=== PATIENT | female | born 1960 | race Caucasian/White ===

== ENCOUNTER 2017-02-23 11:15 | Emergency (ER) | payer OTHER ==
[~2017-02-23] VITALS: Ht 154.9 cm; Wt 109.0 kg
[~2017-02-23 11:15] MED LIST: AMOXICILLIN500 MG OR; AMOXIL500 MG OR; ANTI-FUNGAL12 TOP; BENTYL10 MG PO; BENZTROPINE0.5 MG PO; BUSPIRONE10 MG PO; CENTRUM ADULTS1 TAB PO; CIPRO500 MG OR; DARVOCET-N 100100 MG OR; FLEXERIL OR; HYDROXYZINE HCL50 MG PO; KEFLEX500 M1 PO; LORTAB 5 OR; MEDDOSEPAK OR; MEDDOSEPAK PO; METRONIDAZOL500 MG PO; MIRTAZAPINE15 M1 PO; MOTRIN400 MG OR; MOTRIN800 MG PO; NAPROSYN500 MG OR; NO HOME MEDS; OLANZAPINE ODT20 MG PO; PRILOSEC40 MG PO; PROAIR HFA IN; PROVENTIL INH17 GM IN; PROVENTIL0.083 % IN; QVAR80 MCG IN; ROBITUSSIN AC10 ML PO; ROCEPHIN 2250 MG/VIA IM; TRAZODONE50 MG PO; TRIMOX500 MG PO; TYLENOL325 MG OR; ULTRAM50 M1 OR; ULTRAM50 M1 PO; VENLAFAXINE H37.5 MG PO; VENTOLIN HFA IN; ZITHROMAX500 MG PO; ZOLPIDEM10 M1 PO
[2017-02-23 11:20] VITALS: BP 137/87
== END 2017-02-23 13:35 | disposition left against medical advice (07) | DRG 951 ==
LOC: ED 11:15
DX: Z91.19 Patient's noncompliance with other medical treatment and regimen (principal)

== ENCOUNTER 2017-10-14 10:50 | Emergency (ER) | payer OTHER ==
[~2017-10-14] VITALS: Ht 154.9 cm; Wt 104.5 kg
[2017-10-14] MEDS ORDERED: CELEXA20 MG PO (11:16)
[2017-10-14] MEDS ORDERED: KLOR-CON M2020 MEQ PO (11:19)
[2017-10-14] MEDS ORDERED: RISPERIDONE1 MG PO (11:25)
[2017-10-14] MEDS ORDERED: GABAPENTIN600 MG PO (11:29)
[2017-10-14] MEDS ORDERED: EFFEXOR XR75 MG PO (11:30)
[2017-10-14] MEDS ORDERED: MULTIVITAMI1 PO (11:31)
[2017-10-14] MEDS ORDERED: LORTAB 5/3255 MG PO (12:18)
[2017-10-14] MEDS ORDERED: EC-NAPROSYN500 MG PO (12:18)
[2017-10-14 12:20] VITALS: BP 130/88
== END 2017-10-14 12:20 | disposition home or self-care (01) | DRG 605 ==
LOC: ED 10:50
DX: S80.02XA Contusion of left knee, initial encounter (principal); Z99.81 Dependence on supplemental oxygen; J44.9 Chronic obstructive pulmonary disease, unspecified; F17.210 Nicotine dependence, cigarettes, uncomplicated; F32.9 Major depressive disorder, single episode, unspecified; G25.81 Restless legs syndrome; F41.9 Anxiety disorder, unspecified; W10.9XXA Fall (on) (from) unspecified stairs and steps, initial encounter; Y93.9 Activity, unspecified; Y92.009 Unspecified place in unspecified non-institutional (private) residence as the place of occurrence of the external cause

== ENCOUNTER 2017-10-29 13:11 | Emergency (ER) | payer OTHER ==
[~2017-10-29] VITALS: Ht 154.9 cm; Wt 104.0 kg
[~2017-10-29 13:11] MED LIST changes: +CELEXA20 MG PO; +EC-NAPROSYN500 MG PO; +EFFEXOR XR75 MG PO; +GABAPENTIN600 MG PO; +KLOR-CON M2020 MEQ PO; +LORTAB 5/3255 MG PO; +MULTIVITAMI1 PO; +RISPERIDONE1 MG PO
[2017-10-29] MEDS ORDERED: HYDROXYZ PAM25 MG PO (14:21)
[2017-10-29] MEDS ORDERED: VENLAFAXINE HCL75 M1 PO (14:22)
[2017-10-29] MEDS ORDERED: CELEXA20 MG PO (14:22)
[2017-10-29] MEDS ORDERED: MEDDOSEPAK PO (14:23)
[2017-10-29] MEDS ORDERED: MOTRIN400 MG PO (15:26)
[2017-10-29 15:40] VITALS: BP 135/83
== END 2017-10-29 15:50 | disposition home or self-care (01) | DRG 556 ==
LOC: ED 13:11
DX: M25.562 Pain in left knee (principal); J44.9 Chronic obstructive pulmonary disease, unspecified; F32.9 Major depressive disorder, single episode, unspecified; G25.81 Restless legs syndrome; F41.9 Anxiety disorder, unspecified; F17.210 Nicotine dependence, cigarettes, uncomplicated; Z99.81 Dependence on supplemental oxygen
CPT/HCPCS: L1830

== ENCOUNTER 2017-11-04 18:08 | Emergency (ER) | payer OTHER ==
[~2017-11-04] VITALS: Ht 154.9 cm; Wt 103.0 kg
[~2017-11-04 18:08] MED LIST changes: +HYDROXYZ PAM25 MG PO; +MOTRIN400 MG PO; +VENLAFAXINE HCL75 M1 PO
[2017-11-04 18:45] VITALS: BP 106/62
== END 2017-11-04 20:35 | disposition home or self-care (01) | DRG 554 ==
LOC: ED 18:08
DX: M17.12 Unilateral primary osteoarthritis, left knee (principal); M25.562 Pain in left knee; R22.43 Localized swelling, mass and lump, lower limb, bilateral

== ENCOUNTER 2019-02-04 06:27 | Day surgery (SDC) | payer OTHER ==
[~2019-02-04 06:27] MED LIST changes: +DUONEB IN; +LIPITOR40 M1 PO
[2019-02-04 07:57] VITALS: BP 106/56
== END 2019-02-04 08:57 | disposition home or self-care (01) ==
LOC: ORM 06:27
PROVIDERS: ATTEND Anesthesiology Pain Medicine
DX: M17.12 Unilateral primary osteoarthritis, left knee (principal)

== ENCOUNTER 2019-05-28 12:41 | Emergency (ER) | payer OTHER ==
[~2019-05-28] VITALS: Ht 154.9 cm; Wt 105.0 kg
[~2019-05-28 12:41] MED LIST changes: +ALL DAY10 MG PO; +INDOMETHACIN50 MG PO; +TRAMADOL HCL50 MG PO
[2019-05-28] MEDS ORDERED: VOLTAREN1%GEL TOP (15:06)
[2019-05-28] MEDS ORDERED: GABAPENTIN800 MG PO (15:07)
[2019-05-28] MEDS ORDERED: FUROSEMIDE20 MG PO (15:07)
[2019-05-28] MEDS ORDERED: OLANZAPINE20 MG PO (15:08)
[2019-05-28] MEDS ORDERED: TRAZODONE HYDR150 MG PO (15:08)
[2019-05-28] MEDS ORDERED: HYDROXYZ HCL25 MG PO (15:09)
[2019-05-28] MEDS ORDERED: ATORVASTATIN CA40 MG PO (15:09)
[2019-05-28 15:10] VITALS: BP 131/79
[2019-05-28] MEDS ORDERED: CETIRIZINE10 MG PO (15:15)
[2019-05-28] MEDS ORDERED: BUSPAR15 M1 PO (15:15)
[2019-05-28] MEDS ORDERED: BENZTROPINE1 MG PO (15:16)
[2019-05-28] MEDS ORDERED: METHOCARBAM500 MG PO (15:17)
== END 2019-05-28 15:10 | disposition home or self-care (01) ==
LOC: ED 12:41
DX: S80.01XA Contusion of right knee, initial encounter (principal); J44.9 Chronic obstructive pulmonary disease, unspecified; F17.210 Nicotine dependence, cigarettes, uncomplicated; W18.30XA Fall on same level, unspecified, initial encounter; Z99.81 Dependence on supplemental oxygen

== ENCOUNTER 2019-06-24 06:08 | Day surgery (SDC) | payer OTHER ==
[~2019-06-24] VITALS: Ht 154.9 cm; Wt 108.9 kg
[~2019-06-24 06:08] MED LIST changes: +ATORVASTATIN CA40 MG PO; +BENZTROPINE1 MG PO; +BUSPAR15 M1 PO; +CETIRIZINE10 MG PO; +FUROSEMIDE20 MG PO; +GABAPENTIN800 MG PO; +HYDROXYZ HCL25 MG PO; +METHOCARBAM500 MG PO; +OLANZAPINE20 MG PO; +TRAZODONE HYDR150 MG PO; +VOLTAREN1%GEL TOP
[2019-06-24 08:23] VITALS: BP 124/87
== END 2019-06-24 09:14 | disposition home or self-care (01) ==
LOC: ORM 06:08
PROVIDERS: ATTEND Anesthesiology Pain Medicine
DX: M17.11 Unilateral primary osteoarthritis, right knee (principal)

== ENCOUNTER 2019-07-08 06:16 | Day surgery (SDC) | payer OTHER ==
[~2019-07-08] VITALS: Ht 154.9 cm; Wt 104.3 kg
[2019-07-08 10:15] VITALS: BP 146/98
== END 2019-07-08 08:43 | disposition home or self-care (01) ==
LOC: ORM 06:16
PROVIDERS: ATTEND Anesthesiology Pain Medicine
DX: M17.12 Unilateral primary osteoarthritis, left knee (principal)

== ENCOUNTER 2019-08-24 14:34 | Observation (INO) | payer OTHER ==
[~2019-08-24] VITALS: Ht 154.9 cm; Wt 109.3 kg
[2019-08-24 15:13] LABS: HEMATOCRIT 40.1 % (37.0-47.0); HEMOGLOBIN 13.4 g/dl (12.0-16.0); IMMATURE GRANULOCYTES 0.8 % (0.0-5.0); MEAN CELL VOLUME 93.5 fL CALC (80.0-100.0); MEAN CORPUSCULAR HGB 31.2 pG CALC (26.0-32.0); MEAN CORPUSCULAR HGB CONC 33.4 g/L CALC (32.0-36.0); NEUT# 11.56 thou/uL (2.00-7.15); RED BLOOD COUNT 4.29 mill/uL (4.20-5.60); RED CELL DISTRI WIDTH 14.6 % (11.5-15.5)
[2019-08-24 15:29] LABS: ANION GAP 16 (6-22 (CALC)); BUN 15 mg/dL (7-17); BUN/CREATININE RATIO 19 (12-20 (CALC)); CARBON DIOXIDE 25 mmol/l (22-30); CHLORIDE 101 mmol/l (95-108); CREATININE 0.8 mg/dL (0.5-1.0); GFR > 60 ML/MIN (>=60 (CALC)); GFR FOR AFR.AMER. > 60 ML/MIN (>=60 (CALC)); POTASSIUM 3.6 mmol/l (3.5-5.1); SODIUM 138 mmol/l (137-146)
[2019-08-24 15:56] LABS: URINE BILIRUBIN - DIPSTICK NEGATIVE (NEGATIVE); URINE BLOOD DIPSTICK NEGATIVE (NEGATIVE); URINE COLOR YELLOW; URINE GLUCOSE - DIPSTICK NEGATIVE (NEGATIVE); URINE KETONE NEGATIVE (NEGATIVE); URINE LEUK ESTERASE NEGATIVE (NEGATIVE); URINE NITRITE - DIPSTICK NEGATIVE (Negative); URINE PH 6.5 (4.5-8.0); URINE PROTEIN - DIPSTICK NEGATIVE (NEG-TRACE); URINE SPECIFIC GRAVITY 1.025; URINE UROBILINOGEN - DIPSTICK 0.2 E.U./dL (0.2)
[2019-08-24 19:16] VITALS: BP 141/86
[2019-08-25 03:30] VITALS: BP 132/83
[2019-08-25 08:24] VITALS: BP 132/72
[2019-08-25 11:05] VITALS: BP 124/80
[2019-08-25 11:41] LABS: CHOLESTEROL HDL RATIO 3.7 (<4.4 (CALC)); MAGNESIUM 1.8 mg/dL (1.6-2.3)
[2019-08-25] MEDS ORDERED: BREO ELLIPTA1 INH IN (13:58)
[2019-08-25] MEDS ORDERED: ALBUTEROL SUL0.083 % IN (14:03)
[2019-08-25 17:14] VITALS: BP 136/86
[2019-08-25 19:10] VITALS: BP 114/61
[2019-08-26] VITALS: BP 145/82
[2019-08-26 04:10] VITALS: BP 122/67
[2019-08-26 05:39] LABS: HEMATOCRIT 34.3 % (37.0-47.0); HEMOGLOBIN 11.5 g/dl (12.0-16.0); IMMATURE GRANULOCYTES 1.4 % (0.0-5.0); MEAN CORPUSCULAR HGB 31.5 pG CALC (26.0-32.0); MEAN CORPUSCULAR HGB CONC 33.5 g/L CALC (32.0-36.0); NEUT# 17.28 thou/uL (2.00-7.15); RED BLOOD COUNT 3.65 mill/uL (4.20-5.60); RED CELL DISTRI WIDTH 14.6 % (11.5-15.5)
[2019-08-26 06:03] LABS: ANION GAP 15 (6-22 (CALC)); BUN 16 mg/dL (7-17); BUN/CREATININE RATIO 24 (12-20 (CALC)); CARBON DIOXIDE 24 mmol/l (22-30); CHLORIDE 101 mmol/l (95-108); CREATININE 0.7 mg/dL (0.5-1.0); GFR > 60 ML/MIN (>=60 (CALC)); GFR FOR AFR.AMER. > 60 ML/MIN (>=60 (CALC)); MAGNESIUM 1.9 mg/dL (1.6-2.3); POTASSIUM 4.2 mmol/l (3.5-5.1); SODIUM 136 mmol/l (137-146)
[2019-08-26 08:22] VITALS: BP 136/82
[2019-08-26 10:55] VITALS: BP 127/81
[2019-08-26 15:30] VITALS: BP 134/81
[2019-08-26 18:58] VITALS: BP 149/92
[2019-08-27] VITALS: BP 130/72
[2019-08-27 04:34] VITALS: BP 143/91
[2019-08-27 05:31] LABS: HEMATOCRIT 34.4 % (37.0-47.0); HEMOGLOBIN 11.4 g/dl (12.0-16.0); IMMATURE GRANULOCYTES 1.6 % (0.0-5.0); MEAN CORPUSCULAR HGB 31.1 pG CALC (26.0-32.0); MEAN CORPUSCULAR HGB CONC 33.1 g/L CALC (32.0-36.0); NEUT# 14.1 thou/uL (2.00-7.15); RED BLOOD COUNT 3.66 mill/uL (4.20-5.60); RED CELL DISTRI WIDTH 14.7 % (11.5-15.5)
[2019-08-27 06:05] LABS: ANION GAP 14 (6-22 (CALC)); BUN 16 mg/dL (7-17); BUN/CREATININE RATIO 25 (12-20 (CALC)); CARBON DIOXIDE 27 mmol/l (22-30); CHLORIDE 102 mmol/l (95-108); CREATININE 0.7 mg/dL (0.5-1.0); GFR > 60 ML/MIN (>=60 (CALC)); GFR FOR AFR.AMER. > 60 ML/MIN (>=60 (CALC)); MAGNESIUM 2.2 mg/dL (1.6-2.3); SODIUM 139 mmol/l (137-146)
[2019-08-27 08:48] VITALS: BP 144/92
[2019-08-27] MEDS ORDERED: LEVAQUIN750 MG PO (10:45)
[2019-08-27] MEDS ORDERED: CARDIZEM CD120 MG PO (10:46)
[2019-08-27] MEDS ORDERED: PREDNISONE10 MG PO (10:46)
[2019-08-27 11:00] VITALS: BP 144/93
[2019-08-27 13:04] VITALS: BP 153/99
== END 2019-08-27 13:48 | disposition home health service (06) ==
LOC: ED 14:34 → ED-I 16:11 → ED 16:25 → ED-I 16:26 → MS2 18:44
PROVIDERS: Family Medicine; Nurse Practitioner Family; ADMIT Internal Medicine; ATTEND Internal Medicine
DX: J43.9 Emphysema, unspecified (principal); J96.10 Chronic respiratory failure, unspecified whether with hypoxia or hypercapnia; R00.0 Tachycardia, unspecified; R07.2 Precordial pain; Z99.81 Dependence on supplemental oxygen; F31.9 Bipolar disorder, unspecified; F41.9 Anxiety disorder, unspecified; F43.10 Post-traumatic stress disorder, unspecified; G25.81 Restless legs syndrome; M17.0 Bilateral primary osteoarthritis of knee; F17.200 Nicotine dependence, unspecified, uncomplicated; G89.4 Chronic pain syndrome; Z23 Encounter for immunization
CPT/HCPCS: G0378

== ENCOUNTER 2020-01-23 | Emergency (ER) | payer OTHER ==
[~2020-01-23] MED LIST changes: +ALBUTEROL SUL0.083 % IN; +BREO ELLIPTA1 INH IN; +CARDIZEM CD120 MG PO; +LEVAQUIN750 MG PO; +PREDNISONE10 MG PO
[2020-01-23] MEDS ORDERED: CEPHALEXIN500 M1 PO (16:45)
== END 2020-01-23 17:03 | disposition home or self-care (01) ==
DX: S61.412A Laceration without foreign body of left hand, initial encounter (principal); J44.9 Chronic obstructive pulmonary disease, unspecified; F17.210 Nicotine dependence, cigarettes, uncomplicated; W25.XXXA Contact with sharp glass, initial encounter; Y93.G1 Activity, food preparation and clean up; Y92.000 Kitchen of unspecified non-institutional (private) residence as the place of occurrence of the external cause; Z99.81 Dependence on supplemental oxygen

== ENCOUNTER 2020-07-26 09:55 | Inpatient (IN) | payer OTHER ==
[~2020-07-26] VITALS: Ht 154.9 cm; Wt 118.6 kg
[2020-07-26] VITALS (10 sets, daily range): BP systolic 101–135; BP diastolic 57–87
[~2020-07-26 09:55] MED LIST changes: +CEPHALEXIN500 M1 PO; -FUROSEMIDE20 MG PO; +LASIX 40 MG TAB40 MG PO; -TRAZODONE HYDR150 MG PO; +TRAZODONE100 MG PO; +VENLAFAXINE HC150 MG PO; -VENLAFAXINE HCL75 M1 PO
[2020-07-26 11:35] LABS: HEMATOCRIT 38.4 % (37.0-47.0); HEMOGLOBIN 11.9 g/dl (12.0-16.0); IMMATURE GRANULOCYTES 0.9 % (0.0-5.0); MEAN CORPUSCULAR HGB 30.1 pG CALC (26.0-32.0); NEUT# 11.88 thou/uL (2.00-7.15); RED BLOOD COUNT 3.96 mill/uL (4.20-5.60)
[2020-07-26 11:59] LABS: ALBUMIN 4.2 g/dL (3.2-5.0); ALKALINE PHOSPHATASE 109 u/l (38-126); ANION GAP 10 (6-22 (CALC)); BILIRUBIN, TOTAL 0.3 mg/dL (0.0-1.4); BUN 6 mg/dL (7-17); BUN/CREATININE RATIO 9 (12-20 (CALC)); C-REACTIVE PROTEIN 4.2 mg/dL (0-0.9); CARBON DIOXIDE 31 mmol/l (22-30); CHLORIDE 101 mmol/l (95-108); CREATININE 0.7 mg/dL (0.5-1.0); GFR > 60 ML/MIN (>=60 (CALC)); GFR FOR AFR.AMER. > 60 ML/MIN (>=60 (CALC)); PROTHROMBIN TIME 10.1 SECONDS (9.0-12.5); SGOT/AST 24 u/l (14-36); SODIUM 138 mmol/l (137-146); TOTAL PROTEIN 6.7 g/dL (6.3-8.2)
[2020-07-26 12:06] LABS: URINE BILIRUBIN - DIPSTICK NEGATIVE (NEGATIVE); URINE BLOOD DIPSTICK NEGATIVE (NEGATIVE); URINE COLOR YELLOW; URINE GLUCOSE - DIPSTICK NEGATIVE (NEGATIVE); URINE KETONE NEGATIVE (NEGATIVE); URINE LEUK ESTERASE NEGATIVE (NEGATIVE); URINE NITRITE - DIPSTICK NEGATIVE (Negative); URINE PH 5.5 (4.5-8.0); URINE PROTEIN - DIPSTICK 30 mg/dL (NEG-TRACE); URINE SPECIFIC GRAVITY >=1.030; URINE UROBILINOGEN - DIPSTICK 0.2 E.U./dL (0.2)
[2020-07-26 12:10] LABS: URINE EPITHELIAL CELLS FEW EPI/hpf (0-FEW); URINE MUCUS FEW hpf (NONE-FEW)
[2020-07-26] MEDS ORDERED: SPIRONOLACTONE50 MG PO (13:24)
[2020-07-26] MEDS ORDERED: CARDIZEM CD240 MG PO (13:30)
[2020-07-26] MEDS ORDERED: VENLAFAXINE75 M1 PO (13:36)
[2020-07-26] MEDS ORDERED: OMEPRAZOLE20 MG PO (13:39)
[2020-07-26] MEDS ORDERED: ASPIRIN81 MG PO (13:39)
[2020-07-26] MEDS ORDERED: RISPERDAL1 M1 PO (13:40)
[2020-07-26] MEDS ORDERED: MIRTAZAPINE30 M2 PO (13:40)
[2020-07-26] MEDS ORDERED: TRILEPTAL150 M1 PO (13:41)
[2020-07-27] VITALS (10 sets, daily range): BP systolic 105–142; BP diastolic 61–86
[2020-07-27 04:54] LABS: HEMATOCRIT 38.9 % (37.0-47.0); IMMATURE GRANULOCYTES 0.5 % (0.0-5.0); MEAN CORPUSCULAR HGB 29.9 pG CALC (26.0-32.0); MEAN CORPUSCULAR HGB CONC 30.8 g/dL CAL (32.0-36.0); NEUT# 7.49 thou/uL (2.00-7.15); RED BLOOD COUNT 4.01 mill/uL (4.20-5.60)
[2020-07-27 05:45] LABS: ALKALINE PHOSPHATASE 101 u/l (38-126); ANION GAP 10 (6-22 (CALC)); BILIRUBIN, TOTAL 0.3 mg/dL (0.0-1.4); BUN 7 mg/dL (7-17); BUN/CREATININE RATIO 10 (12-20 (CALC)); C-REACTIVE PROTEIN 3.3 mg/dL (0-0.9); CARBON DIOXIDE 35 mmol/l (22-30); CHLORIDE 101 mmol/l (95-108); CREATININE 0.7 mg/dL (0.5-1.0); GFR > 60 ML/MIN (>=60 (CALC)); GFR FOR AFR.AMER. > 60 ML/MIN (>=60 (CALC)); POTASSIUM 4.3 mmol/l (3.5-5.1); SGOT/AST 27 u/l (14-36); SODIUM 142 mmol/l (137-146); TOTAL PROTEIN 6.6 g/dL (6.3-8.2)
[2020-07-28] VITALS (12 sets, daily range): BP systolic 105–174; BP diastolic 61–90
[2020-07-28 05:09] LABS: HEMATOCRIT 36.8 % (37.0-47.0); HEMOGLOBIN 11.5 g/dl (12.0-16.0); IMMATURE GRANULOCYTES 0.3 % (0.0-5.0); MEAN CELL VOLUME 97.9 fL CALC (80.0-100.0); MEAN CORPUSCULAR HGB 30.6 pG CALC (26.0-32.0); MEAN CORPUSCULAR HGB CONC 31.3 g/dL CAL (32.0-36.0); NEUT# 7.25 thou/uL (2.00-7.15); RED BLOOD COUNT 3.76 mill/uL (4.20-5.60); RED CELL DISTRI WIDTH 16.1 % (11.5-15.5)
[2020-07-28 05:41] LABS: ALBUMIN 3.6 g/dL (3.2-5.0); ALKALINE PHOSPHATASE 82 u/l (38-126); ANION GAP 7 (6-22 (CALC)); BILIRUBIN, TOTAL 0.3 mg/dL (0.0-1.4); BUN 16 mg/dL (7-17); BUN/CREATININE RATIO 19 (12-20 (CALC)); C-REACTIVE PROTEIN 1.4 mg/dL (0-0.9); CHLORIDE 99 mmol/l (95-108); CREATININE 0.8 mg/dL (0.5-1.0); GFR > 60 ML/MIN (>=60 (CALC)); GFR FOR AFR.AMER. > 60 ML/MIN (>=60 (CALC)); POTASSIUM 3.8 mmol/l (3.5-5.1); SGOT/AST 24 u/l (14-36); SODIUM 142 mmol/l (137-146)
[2020-07-28 05:49] LABS: CARBON DIOXIDE > 40 mmol/l (22-30)
[2020-07-29] VITALS (11 sets, daily range): BP systolic 117–156; BP diastolic 52–88
[2020-07-29 07:31] LABS: HEMATOCRIT 38.6 % (37.0-47.0); HEMOGLOBIN 12.2 g/dl (12.0-16.0); IMMATURE GRANULOCYTES 0.5 % (0.0-5.0); MEAN CELL VOLUME 95.1 fL CALC (80.0-100.0); MEAN CORPUSCULAR HGB CONC 31.6 g/dL CAL (32.0-36.0); NEUT# 8.97 thou/uL (2.00-7.15); RED BLOOD COUNT 4.06 mill/uL (4.20-5.60); RED CELL DISTRI WIDTH 15.8 % (11.5-15.5)
[2020-07-29 07:52] LABS: ALBUMIN 3.7 g/dL (3.2-5.0); ALKALINE PHOSPHATASE 84 u/l (38-126); ANION GAP 10 (6-22 (CALC)); BILIRUBIN, TOTAL 0.4 mg/dL (0.0-1.4); BUN 16 mg/dL (7-17); BUN/CREATININE RATIO 23 (12-20 (CALC)); CARBON DIOXIDE 38 mmol/l (22-30); CHLORIDE 98 mmol/l (95-108); CREATININE 0.7 mg/dL (0.5-1.0); GFR > 60 ML/MIN (>=60 (CALC)); GFR FOR AFR.AMER. > 60 ML/MIN (>=60 (CALC)); POTASSIUM 4.2 mmol/l (3.5-5.1); SGOT/AST 20 u/l (14-36); SODIUM 142 mmol/l (137-146); TOTAL PROTEIN 6.1 g/dL (6.3-8.2)
[2020-07-30] VITALS (8 sets, daily range): BP systolic 109–148; BP diastolic 70–89
[2020-07-31] VITALS (8 sets, daily range): BP systolic 120–158; BP diastolic 68–95
[2020-07-31 05:47] LABS: HEMATOCRIT 37.8 % (37.0-47.0); HEMOGLOBIN 11.7 g/dl (12.0-16.0); MEAN CELL VOLUME 95.7 fL CALC (80.0-100.0); MEAN CORPUSCULAR HGB 29.6 pG CALC (26.0-32.0); NEUT# 11.41 thou/uL (2.00-7.15); RED BLOOD COUNT 3.95 mill/uL (4.20-5.60); RED CELL DISTRI WIDTH 15.6 % (11.5-15.5)
[2020-07-31 06:06] LABS: ANION GAP 10 (6-22 (CALC)); BUN 25 mg/dL (7-17); BUN/CREATININE RATIO 33 (12-20 (CALC)); CARBON DIOXIDE 35 mmol/l (22-30); CHLORIDE 99 mmol/l (95-108); CREATININE 0.7 mg/dL (0.5-1.0); GFR > 60 ML/MIN (>=60 (CALC)); GFR FOR AFR.AMER. > 60 ML/MIN (>=60 (CALC)); POTASSIUM 4.7 mmol/l (3.5-5.1); SODIUM 139 mmol/l (137-146)
[2020-08-01] VITALS: BP 117/71
[2020-08-01 04:00] VITALS: BP 137/81
[2020-08-01 05:47] LABS: HEMATOCRIT 42.5 % (37.0-47.0); HEMOGLOBIN 13.4 g/dl (12.0-16.0); IMMATURE GRANULOCYTES 1.1 % (0.0-5.0); MEAN CELL VOLUME 94.2 fL CALC (80.0-100.0); MEAN CORPUSCULAR HGB 29.7 pG CALC (26.0-32.0); MEAN CORPUSCULAR HGB CONC 31.5 g/dL CAL (32.0-36.0); NEUT# 11.99 thou/uL (2.00-7.15); RED BLOOD COUNT 4.51 mill/uL (4.20-5.60); RED CELL DISTRI WIDTH 15.4 % (11.5-15.5)
[2020-08-01 06:12] LABS: ANION GAP 9 (6-22 (CALC)); BUN 21 mg/dL (7-17); BUN/CREATININE RATIO 30 (12-20 (CALC)); CARBON DIOXIDE 34 mmol/l (22-30); CHLORIDE 101 mmol/l (95-108); CREATININE 0.7 mg/dL (0.5-1.0); GFR > 60 ML/MIN (>=60 (CALC)); GFR FOR AFR.AMER. > 60 ML/MIN (>=60 (CALC)); POTASSIUM 4.6 mmol/l (3.5-5.1); SODIUM 140 mmol/l (137-146)
[2020-08-01 07:57] VITALS: BP 158/88
[2020-08-01 11:36] VITALS: BP 151/84
[2020-08-01 16:00] VITALS: BP 121/79
[2020-08-01 19:00] VITALS: BP 128/79
[2020-08-02] VITALS: BP 112/57
[2020-08-02 04:00] VITALS: BP 133/92
[2020-08-02 06:06] LABS: HEMATOCRIT 41.7 % (37.0-47.0); HEMOGLOBIN 13.3 g/dl (12.0-16.0); IMMATURE GRANULOCYTES 0.9 % (0.0-5.0); MEAN CELL VOLUME 93.7 fL CALC (80.0-100.0); MEAN CORPUSCULAR HGB 29.9 pG CALC (26.0-32.0); MEAN CORPUSCULAR HGB CONC 31.9 g/dL CAL (32.0-36.0); NEUT# 11.05 thou/uL (2.00-7.15); RED BLOOD COUNT 4.45 mill/uL (4.20-5.60); RED CELL DISTRI WIDTH 15.2 % (11.5-15.5)
[2020-08-02 06:23] LABS: ALBUMIN 3.5 g/dL (3.2-5.0); ALKALINE PHOSPHATASE 86 u/l (38-126); ANION GAP 11 (6-22 (CALC)); BILIRUBIN, TOTAL 0.3 mg/dL (0.0-1.4); BUN 21 mg/dL (7-17); BUN/CREATININE RATIO 24 (12-20 (CALC)); CARBON DIOXIDE 33 mmol/l (22-30); CHLORIDE 100 mmol/l (95-108); CREATININE 0.9 mg/dL (0.5-1.0); GFR > 60 ML/MIN (>=60 (CALC)); GFR FOR AFR.AMER. > 60 ML/MIN (>=60 (CALC)); POTASSIUM 4.8 mmol/l (3.5-5.1); SGOT/AST 23 u/l (14-36); SODIUM 139 mmol/l (137-146); TOTAL PROTEIN 5.8 g/dL (6.3-8.2)
[2020-08-02 07:27] VITALS: BP 130/80
[2020-08-02 10:30] VITALS: BP 121/78
[2020-08-02] MEDS ORDERED: PREDNISONE10 MG PO (10:46)
[2020-08-02] MEDS ORDERED: ROBITUSSIN200 MG/10 PO (11:07)
[2020-08-02] MEDS ORDERED: PULSE OXIMETER TD (11:09)
== END 2020-08-02 15:38 | disposition home health service (06) | DRG 193 ==
LOC: ED 09:55 → ED-I 10:59 → ED 10:59 → ED-I 12:35 → ED 12:46 → ICU 12:47 → MS2 07-31 14:33
PROVIDERS: Family Medicine; Internal Medicine; Nurse Practitioner; ADMIT Internal Medicine; ATTEND Internal Medicine
PROC: 06HY33Z Insertion of Infusion Device into Lower Vein, Percutaneous Approach (ICD-10-PCS; principal; 2020-07-26)
PROC: XW033E5 Introduction of Remdesivir Anti-infective into Peripheral Vein, Percutaneous Approach, New Technology Group 5 (ICD-10-PCS; 2020-07-26)
DX: J18.9 Pneumonia, unspecified organism (principal); J96.21 Acute and chronic respiratory failure with hypoxia; J81.1 Chronic pulmonary edema; J43.9 Emphysema, unspecified; I47.9 Paroxysmal tachycardia, unspecified; F31.89 Other bipolar disorder; Z68.41 Body mass index [BMI] 40.0-44.9, adult; Z99.81 Dependence on supplemental oxygen; R53.1 Weakness; F41.9 Anxiety disorder, unspecified; F43.10 Post-traumatic stress disorder, unspecified; F17.210 Nicotine dependence, cigarettes, uncomplicated; Z20.828 Contact with and (suspected) exposure to other viral communicable diseases; E78.5 Hyperlipidemia, unspecified; G25.81 Restless legs syndrome; M17.0 Bilateral primary osteoarthritis of knee; E66.01 Morbid (severe) obesity due to excess calories; Z79.82 Long term (current) use of aspirin; Z79.899 Other long term (current) drug therapy; Z96.642 Presence of left artificial hip joint
CPT/HCPCS: J1650; S0164

== ENCOUNTER 2020-12-08 09:29 | Inpatient (IN) | payer OTHER ==
[2020-12-08] VITALS (11 sets, daily range): BP systolic 92–127; BP diastolic 58–81
[~2020-12-08] VITALS: Ht 154.9 cm; Wt 114.0 kg
[~2020-12-08 09:29] MED LIST changes: +ASPIRIN81 MG PO; +CARDIZEM CD240 MG PO; +MIRTAZAPINE30 M2 PO; +OMEPRAZOLE20 MG PO; +PULSE OXIMETER TD; +RISPERDAL1 M1 PO; +ROBITUSSIN200 MG/10 PO; +SPIRONOLACTONE50 MG PO; +TRILEPTAL150 M1 PO; +VENLAFAXINE75 M1 PO
--- NOTE | 2020-12-08 09:29 | NUR ---
PT TO ROOM VIA EMS, WITH 15 L NRB
[2020-12-08 10:04] LABS: HEMATOCRIT 43.8 % (37.0-47.0); HEMOGLOBIN 12.7 g/dl (12.0-16.0); IMMATURE GRANULOCYTES 0.3 % (0.0-5.0); MEAN CORPUSCULAR HGB 24.4 pG CALC (26.0-32.0); NEUT# 5.59 thou/uL (2.00-7.15); RED BLOOD COUNT 5.21 mill/uL (4.20-5.60); RED CELL DISTRI WIDTH 21.2 % (11.5-15.5)
--- NOTE | 2020-12-08 10:11 | NUR ---
PHARMACY CONSULT PLACED
[2020-12-08] MEDS ORDERED: ZOLPIDEM10 M1 PO (10:15)
[2020-12-08] MEDS ORDERED: OMEPRAZOLE DR20 MG PO (10:15)
[2020-12-08 10:16] LABS: MEAN CELL VOLUME 84.1 fL CALC (80.0-100.0)
[2020-12-08] MEDS ORDERED: ATORVASTATIN CA40 MG PO (10:17)
[2020-12-08] MEDS ORDERED: MIRTAZAPINE30 M2 PO (10:17)
[2020-12-08] MEDS ORDERED: CETIRIZINE10 MG PO (10:18)
[2020-12-08] MEDS ORDERED: TRAZODONE50 MG PO (10:18)
[2020-12-08] MEDS ORDERED: RISPERDAL1 M1 PO (10:18)
[2020-12-08] MEDS ORDERED: K-DUR/KLOR-CON20 MEQ PO (10:18)
[2020-12-08] MEDS ORDERED: TRILEPTAL150 M1 PO (10:19)
[2020-12-08] MEDS ORDERED: EFFEXOR XR150 MG PO (10:19)
[2020-12-08] MEDS ORDERED: SPIRONOLACTONE50 MG PO (10:20)
[2020-12-08] MEDS ORDERED: LASIX 40 MG TAB40 MG PO (10:20)
[2020-12-08] MEDS ORDERED: EFFEXOR XR37.5 MG PO (10:20)
[2020-12-08] MEDS ORDERED: DILTIAZEM HYDR240 M1 PO (10:21)
--- NOTE | 2020-12-08 10:30 | NUR ---
TITRATED SETTINGS PER PT SPO2. DAVIS WELL. NAD. VSS.
[2020-12-08 10:38] LABS: ACT PARTIAL THROMBO TIME 19.6 SECONDS (20.0-32.5); INTERNATIONAL NORMALIZED RATIO 1.1 RATIO (0.7-1.3); PROTHROMBIN TIME 11.3 SECONDS (9.0-12.5)
[2020-12-08 11:12] LABS: ALBUMIN 3.7 g/dL (3.2-5.0); ALKALINE PHOSPHATASE 100 u/l (38-126); BUN 10 mg/dL (7-17); BUN/CREATININE RATIO 16 (12-20 (CALC)); CARBON DIOXIDE 39 mmol/l (22-30); CHLORIDE 96 mmol/l (95-108); CREATININE 0.6 mg/dL (0.5-1.0); GFR > 60 ML/MIN (>=60 (CALC)); GFR FOR AFR.AMER. > 60 ML/MIN (>=60 (CALC)); LIPASE 25 u/l (23-300); SGOT/AST 22 u/l (14-36); SODIUM 139 mmol/l (137-146); TOTAL PROTEIN 6.5 g/dL (6.3-8.2)
[2020-12-08 11:24] LABS: ANION GAP 8 (6-22 (CALC)); BILIRUBIN, TOTAL 0.5 mg/dL (0.0-1.4); POTASSIUM 3.6 mmol/l (3.5-5.1)
--- NOTE | 2020-12-08 13:20 | NUR ---
PATIENT ARRIVED TO UNIT ON BIPAP. ANGELY ALVES
--- NOTE | 2020-12-08 13:20 | NUR ---
AU CATHETER INSERTED. STERILE FIELD IN TACT. CLEAN FLASH BACK OF URINE NOTED.
--- NOTE | 2020-12-08 13:30 | NUR ---
PT TO ICU 2 VIA STRETCHER. RT ACCOMPANIED
--- NOTE | 2020-12-08 13:33 | NUR ---
weaned fio2 per pt spo2/decreased loc as due to copd status. pt tova well at this time, spo2 on 08/05 .4 =94. pt resting comfortably in icu bed. nad. haywood. rn in room with pt.
--- NOTE | 2020-12-08 15:05 | NUR ---
BLOOD GASSES DRAWN
--- NOTE | 2020-12-08 15:17 | NUR ---
TITRATED BIPAP PARAMETERS PER CT ABG RESULTS. LUCY CABRERA AWARE OF RESULTS AND CHANGES. PT RESTING COMFORTABLY AT THIS TIME. NAD. VSS. VETERAN APPEALS REVIEWER TO MONITOR.
[2020-12-08 15:38] LABS: URINE BILIRUBIN - DIPSTICK NEGATIVE (NEGATIVE); URINE BLOOD DIPSTICK NEGATIVE (NEGATIVE); URINE COLOR YELLOW; URINE GLUCOSE - DIPSTICK NEGATIVE (NEGATIVE); URINE KETONE NEGATIVE (NEGATIVE); URINE LEUK ESTERASE NEGATIVE (NEGATIVE); URINE PROTEIN - DIPSTICK TRACE mg/dL (NEG-TRACE); URINE SPECIFIC GRAVITY >=1.030; URINE UROBILINOGEN - DIPSTICK 0.2 E.U./dL (0.2)
[2020-12-08 15:43] LABS: URINE NITRITE - DIPSTICK NEGATIVE (Negative)
--- NOTE | 2020-12-08 16:00 | NUR ---
PATIENT RESTING COMFORTABLY, NO SIGNSOR SYMPTOMS OF DISTRESS
--- NOTE | 2020-12-08 19:35 | NUR ---
PATIENT IS IN BED LAYING ON HER SIDE. BIPAP IN PLACE 20/10, RATE 18, FIO2 40%. PATIENT IS ALERT TOSELF. AU DRAINING CLEAR, PALE URINE. IV SALINE LOCKED. FALL AND SAFTEY PRECAUTIONS IN PLACE. PATIENT INFORMED TO CALL WITH ANY QUESTIONS OR CONCERNS.
--- NOTE | 2020-12-08 21:01 | NUR ---
O2 INCREASED TO 55% BY RN.
--- NOTE | 2020-12-08 21:34 | NUR ---
FIO2 HAS BEEN INCREASED FROM 40% TO 55% DUE TO LOW O2 SAT. HAS GIVEN ORDERS FOR A REPEAT ABG, WILL CALL WITH RESULTS.
--- NOTE | 2020-12-08 22:59 | NUR ---
NOTIFIED OF NEW ABG RESULTS. NO NEW ORDERS GIVEN
[2020-12-09] VITALS (24 sets, daily range): BP systolic 105–136; BP diastolic 58–88
--- NOTE | 2020-12-09 | NUR ---
PATIENT ATTEMPTING TO GET OUT OF BED. BED ALARMING. FALL AND SAFTEY PRECAUTIONS IN PLACE.
--- NOTE | 2020-12-09 02:30 | NUR ---
BED ALARMING, PATIENT ATTEMPTING TO GET OUT OF BED. PATIENT PLACED BACK IN BED. FALL AND SAFTEY PRECAUTIONS IN PLACE.
--- NOTE | 2020-12-09 05:00 | NUR ---
LAB PRESENT AT BEDSIDE DRAWING MORNING LABS.
[2020-12-09 05:25] LABS: HEMATOCRIT 41.9 % (37.0-47.0); HEMOGLOBIN 12.1 g/dl (12.0-16.0); MEAN CELL VOLUME 83.8 fL CALC (80.0-100.0); MEAN CORPUSCULAR HGB 24.2 pG CALC (26.0-32.0); MEAN CORPUSCULAR HGB CONC 28.9 g/dL CAL (32.0-36.0); RED CELL DISTRI WIDTH 21.1 % (11.5-15.5)
[2020-12-09 05:56] LABS: BUN 12 mg/dL (7-17); BUN/CREATININE RATIO 20 (12-20 (CALC)); CHLORIDE 93 mmol/l (95-108); CHOLESTEROL HDL RATIO 3.6 (<4.4 (CALC)); CREATININE 0.6 mg/dL (0.5-1.0); GFR > 60 ML/MIN (>=60 (CALC)); GFR FOR AFR.AMER. > 60 ML/MIN (>=60 (CALC)); HDL CHOLESTEROL 31 mg/dL (>=40); POTASSIUM 4.1 mmol/l (3.5-5.1); SODIUM 138 mmol/l (137-146); TOTAL TRIGLYCERIDES 109 mg/dl (30-149); VLDL CHOLESTROL 22 mg/dl (1-41 (CALC))
[2020-12-09 06:10] LABS: ANION GAP 7 (6-22 (CALC)); CALCULATED LDLCHOLESTEROL 59 mg/dL (62-129 (CALC)); CARBON DIOXIDE 42 mmol/l (22-30); TOTAL CHOLESTEROL 112 mg/dl (0-199)
--- NOTE | 2020-12-09 07:08 | NUR ---
PT ASLEEP IN BED C BIPAP ON. VSS. NAD. DAVIS AEROSOLIZED BRONCHODILATOR THERAPY WELL. NO ADVERSE EFFECTS. LEAD EMBEDDED SOFTWARE ENGINEER TO MONITOR. NO CHANGES WITH BIPAP PARAMETERS AT THIS TIME.
--- NOTE | 2020-12-09 07:20 | NUR ---
pt resting in bed with eyes closed; no apparent distress noted; pt easily aroused to verbal stimuli; assessment completed at this time; pt alert to person, place and time (hospital/city unknown); offers no complaints of pain; no n/v noted; resp even and unlabored; lungs coarse upper anterior/ diminished throughout; skin color wnl; bipap intact with settings of 20/10, rate 18, 55% FiO2; o2 sat 87%; hr reg; strong pulses; 1+ edema noted to ble; sr on monitor; abd soft/ distended with bs present; no bm noted per assembly instructions writer; mathur to gravity draining clear yellow urine; cath strap intact; #18 flushed to rac; saline locked; site to be changed; pt placed on 6L NC; po fluids provided; RT at bedside to monitor pt; plan of care/ am meds explained; call light within reach; will continue to monitor
--- NOTE | 2020-12-09 07:24 | NUR ---
ATTEMPTED TO WEAN OFF OF BIPAP, PLACED ON 6LPM NC. PT SPO2 DROPPED TO 81%. GVE PATIENT SOME WATER AND PLACED BACK ON BIPAP, PREVIOUS SETTINGS. DAVIS WELL AT THIS TIME. ENTERPRISE RESOURCE PLANNER TO MONITOR. RN AWARE.
--- NOTE | 2020-12-09 07:28 | NUR ---
bipap reapplied for o2 sat 81%; RT at bedside to monitor pt; will continue to monitor
--- NOTE | 2020-12-09 08:00 | NUR ---
awake in bed; bipap intact and maintained; sr on monitor; mathur to gravity; call light within reach; will continue to monitor
--- NOTE | 2020-12-09 08:43 | NUR ---
Dr Chapman present at bedside to assess pt and discuss plan of care
--- NOTE | 2020-12-09 09:28 | NUR ---
pt awake in bed; am meds explained and administered; tolerated well; will continue to monitor
--- NOTE | 2020-12-09 10:16 | NUR ---
awake in bed; bipap intact and maintained; iv patent; abt infusing without complication; mathur to gravity; sr on monitor; call light within reach; will continue to monitor
--- NOTE | 2020-12-09 11:05 | NUR ---
PT RESTING COMFORTABLY ON BIPAP. NAD. VSS. INTERNAL COMMUNICATIONS WRITER TO MONITOR.
--- NOTE | 2020-12-09 11:50 | NUR ---
placed pt on 6lpm nc as per request for lunch. pt spo2 = 88. tova well at this time. nad. rn aware. machine cloth examiner to monitor.
--- NOTE | 2020-12-09 12:05 | NUR ---
awake in bed eating lunch; o2 per nc; iv intact; mathur to gravity; st on monitor; call light within reach; will continue to monitor
--- NOTE | 2020-12-09 14:07 | NUR ---
awake in bed; cell phone given to pt as per request; o2 per nc at 6L; sr on monitor; mathur to gravity; pt denies distress/ resp distress; call light within reach; will continue to monitor
--- NOTE | 2020-12-09 15:10 | NUR ---
RT notified per this global technical writer to re-apply bipap
--- NOTE | 2020-12-09 15:14 | NUR ---
PLACED PT BACK ON BIPAP PER PT SPO2. RN AWARE. PT DAVIS WELL. NAD. VSS. CAREER AND TECHNOLOGY EDUCATION TEACHER TO MONITOR.
--- NOTE | 2020-12-09 16:05 | NUR ---
pt awake in bed; no apparent distress noted; bipap intact and maintained; mathur to gravity; iv intact and patent; no redness or edema noted at site; call light within reach; will continue to monitor
--- NOTE | 2020-12-09 18:04 | NUR ---
awake in bed eating dinner; o2 per nc; no apparent distress noted; sr on monitor; mathur to gravity; iv intact; pt offers no complaints; call light within reach
--- NOTE | 2020-12-09 20:00 | NUR ---
REPORT GIVEN BY VERONICA. PATIENT RESTING IN BED TALKING ON THE PHONE. RESP EVEN AND UNLABOED, 6L VIA NC. FALL AND SAFTEY PRECAUTIONS IN PLACE. IV SALINE LOCKED. PLAN OF CARE DISCUSSED. PATIENT INFORMED TO CALL WITH ANY QUESTIONS OR CONCERNSN. AU DRAINING CLEAR YELLOW URINE.
--- NOTE | 2020-12-09 22:00 | NUR ---
PATIENT GIVEN SLEEPING PILL AND PLACED ON BIPAP BY RT.
[2020-12-10] VITALS (15 sets, daily range): BP systolic 90–138; BP diastolic 54–87
--- NOTE | 2020-12-10 | NUR ---
PATIENT IS PULLING ON BIPAP MASK. BIPAP IS CURRENTLY ALARMING. PATIENT REQUESTING RT TO FIX MASK.
--- NOTE | 2020-12-10 02:11 | NUR ---
PATIENT RESTING WITH EYES CLOSED. BIPAP MASK IN PLACE. RESP EVEN AND UNLABORED. NO S/S OF DSITRESS NOTED. FALL AND SAFTEY PRECAUTIONS IN PLACE.
--- NOTE | 2020-12-10 04:44 | NUR ---
PATIENT REMOVED IV, NO IV STARTED 22 L HAND
[2020-12-10 05:23] LABS: HEMATOCRIT 41.4 % (37.0-47.0); HEMOGLOBIN 12.2 g/dl (12.0-16.0); MEAN CELL VOLUME 81.2 fL CALC (80.0-100.0); MEAN CORPUSCULAR HGB 23.9 pG CALC (26.0-32.0); MEAN CORPUSCULAR HGB CONC 29.5 g/dL CAL (32.0-36.0); RED BLOOD COUNT 5.1 mill/uL (4.20-5.60); RED CELL DISTRI WIDTH 20.9 % (11.5-15.5)
[2020-12-10 05:44] LABS: ANION GAP 9 (6-22 (CALC)); BUN 18 mg/dL (7-17); BUN/CREATININE RATIO 32 (12-20 (CALC)); CARBON DIOXIDE 37 mmol/l (22-30); CHLORIDE 91 mmol/l (95-108); CREATININE 0.6 mg/dL (0.5-1.0); GFR > 60 ML/MIN (>=60 (CALC)); GFR FOR AFR.AMER. > 60 ML/MIN (>=60 (CALC)); POTASSIUM 4.2 mmol/l (3.5-5.1); SODIUM 133 mmol/l (137-146)
--- NOTE | 2020-12-10 06:21 | NUR ---
PATIENT REQUESTING PULSE OX B CHANGED TO DIFFERENT, DUE TO IT GETTING CAUGHT ON HER IV
--- NOTE | 2020-12-10 07:15 | NUR ---
PT RESTING COMFORTABLY IN BED, LAYING ON LEFT SIDE. BIPAP ON AND FUNCTIONING APPROPRIATELY. WILL PLACE PT ON NC FOR O2 ADMINISTRATION S/P NEB THERAPY. RN IN ROOM, LEAN MANUFACTURING LEADER TO MONITOR.
--- NOTE | 2020-12-10 07:20 | NUR ---
pt awake in bed; no apparent distress noted; pt offers no complaints; assessment completed at this time; pt alert and oriented; offers no complaints of pain; no n/v noted; resp even and unlabored/ no resp distress noted; lungs clear/ diminished bases; skin color wnl; bipap with settings of 18/10, rate 20, 55% FiO2; coverted to 6L nc per RT for breakfast; manager concrete cough noted; hr reg; strong pulses; trace pedal edema noted; abd soft distended with bs present; no bm noted per advertising copywriter; mathur to gravity draining clear rafal urine; cath strap intact; #22 saline locked to lh; no redness or edema noted at site; plan of care/ meds explained; call light within reach; will continue to monitor
--- NOTE | 2020-12-10 08:19 | NUR ---
awake in bed conversing on cell phone; no resp distress noted; o2 per nc; iv intact; sr on monitor; call light within reach; will continue to monitor
--- NOTE | 2020-12-10 09:17 | NUR ---
Dr Zapata present at bedside to assess pt and discuss plan of care
--- NOTE | 2020-12-10 10:05 | NUR ---
awake in bed; assited to bsc as per request; linens changed; bath set up offered and declined; pt wishes to wait until later for bath/ oral care; back to bed; mathur to gravity; iv intact; st with acitvity on monitor; o2 per nc; call light within reach; will continue to monitor
--- NOTE | 2020-12-10 11:11 | NUR ---
keno writer / runner at bedside; pt instructed to have family bring in Trileptal;
--- NOTE | 2020-12-10 12:10 | NUR ---
pt has removed o2; o2 sat 82% RA; o2 reapplied; immed up to 88%; deep breathing through nose encouraged; iv intact and patent; sr on monitor; mathur to gravity; call light within reach; will continue to monitor
--- NOTE | 2020-12-10 13:12 | NUR ---
PT RESTING COMFORTABLY IN BED, ON PHONE TALKING IN COMPLETE SENTENCES. SEEMS TO BE IN A GOOD MOOD. NO ACUTE DISTRESS NOTED AT THIS TIME. VSS. MANAGER SOURCING TO MONITOR.
--- NOTE | 2020-12-10 14:13 | NUR ---
awake in bed; no apparent distress noted; o2 per nc; mathur to gravity; iv intact; repositions self; sr on monitor; call light within reach; will continue to monitor
--- NOTE | 2020-12-10 15:40 | NUR ---
pt transfered to med surg per w/c
--- NOTE | 2020-12-10 16:00 | NUR ---
awake in bed; no apparent distress noted; pt offers no complaints; iv intact and patent; sr on monitor; o2 per nc; mathur to gravity; po fluids provided; pt conversing on cell phone without distress; call light within reach; will continue to monitor
--- NOTE | 2020-12-10 16:49 | NUR ---
pt up to chair; assisted with bath; catheter care per poem writer; will continue to monitor
--- NOTE | 2020-12-10 18:12 | NUR ---
awake sitting on the side of bed; no apparent distress noted; pt offers no complaints; iv intact and patent; sr on monitor; mathur to gravity; o2 per nc; no resp distress noted; call light within reach
--- NOTE | 2020-12-10 20:00 | NUR ---
REPORT GIVEN BY VERONICA. PATIENT RESSTING IN BED WITH HIFLOW NC IN PLACE WATCHING TV. RESP EVEN AND UNLABORED. FALL AND SAFTEY PRECAUTIONS IN PLACE. AU DRAINING CLEAR YELLOW URINE. IV SALINE LOCKED. PLAN OF CARE DISCUSSED. PATIENT REQUESTING COFFEE AT THIS TIME. PATIENT INFORMED TO CALL WITH ANY QUESTIONS OR CONCERNS.
--- NOTE | 2020-12-10 21:35 | NUR ---
PATIENT GIVEN PM MEDICATION WITH A SLEEPING PILL AND TYLENOL.
[2020-12-11] VITALS (9 sets, daily range): BP systolic 114–134; BP diastolic 60–82
--- NOTE | 2020-12-11 | NUR ---
PATIENT RESTING WITH EYES CLOSED. FALL AND SAFTEY PRECAUTIONS IN [place]. NO S/S OF DISTRESS NOTED.
--- NOTE | 2020-12-11 02:03 | NUR ---
PATIENT RESTING WITH EYES CLOSED. FALL AND SAFTEY PRECAUTIONS IN PLACE. NO S/S OF DISTRESS NOTED.
--- NOTE | 2020-12-11 04:16 | NUR ---
PATIENT REQUESTING NEW GOWN. HER GOWN WAS DAMP FROM SWEATING IN HER SLEEP. FALL AND SAFTEY PRECAUTIONS IN PLACE. NO S/S OF DISTRESS NOTED.
--- NOTE | 2020-12-11 04:25 | NUR ---
PATIENT WEARING 6L NASAL CANNULA WITH SPO2 91% WHILE SLEEPING.
[2020-12-11 05:13] LABS: HEMATOCRIT 40.9 % (37.0-47.0); HEMOGLOBIN 12.1 g/dl (12.0-16.0); IMMATURE GRANULOCYTES 0.4 % (0.0-5.0); MEAN CELL VOLUME 80.5 fL CALC (80.0-100.0); MEAN CORPUSCULAR HGB 23.8 pG CALC (26.0-32.0); MEAN CORPUSCULAR HGB CONC 29.6 g/dL CAL (32.0-36.0); NEUT# 10.28 thou/uL (2.00-7.15); RED BLOOD COUNT 5.08 mill/uL (4.20-5.60); RED CELL DISTRI WIDTH 20.5 % (11.5-15.5)
[2020-12-11 05:41] LABS: ALBUMIN 3.5 g/dL (3.2-5.0); ALKALINE PHOSPHATASE 80 u/l (38-126); ANION GAP 8 (6-22 (CALC)); BILIRUBIN, TOTAL 0.7 mg/dL (0.0-1.4); BUN 18 mg/dL (7-17); BUN/CREATININE RATIO 31 (12-20 (CALC)); CARBON DIOXIDE 36 mmol/l (22-30); CHLORIDE 95 mmol/l (95-108); CREATININE 0.6 mg/dL (0.5-1.0); GFR > 60 ML/MIN (>=60 (CALC)); GFR FOR AFR.AMER. > 60 ML/MIN (>=60 (CALC)); POTASSIUM 3.8 mmol/l (3.5-5.1); SGOT/AST 19 u/l (14-36); SODIUM 135 mmol/l (137-146)
--- NOTE | 2020-12-11 06:45 | NUR ---
RECIEVED REPORT FROM CHRISTINE KERN. ASSUMED PT CARE.
--- NOTE | 2020-12-11 08:00 | NUR ---
PT RESTING IN BED, A&OX4, ABLE TO MAKE NEEDS KNOWN. RESPIRATIONS EVEN/UNLABORED, SA02@90% ON 6LPM/NC LS WHEEZING THROUGHOUT. SR ON TELEMETRY, HR 90. PT DENIES CP, OR DISTRESS AT THIS TIME. ABDOMEN DISTENDED, NON-TENDER. AU REMAINS PATENT DRAINING TO BSD VIA GRAVITY. CLEAR YELLOW URINE. 20G TO RH/SL FLUSHED WITHOUT DIFFICULTY, NO S/S OF INFILTRATION NOTED AT SITE. CALL LIGHT IN REACH WILL MONITOR.
--- NOTE | 2020-12-11 10:00 | NUR ---
PT NOTED WITH INFILTRATION, IV REMOVED, CATHETER INTACT, HEAT APPLIED AND HAND ELEVATED. DR. MORAN NOTIFIED.
--- NOTE | 2020-12-11 10:22 | NUR ---
DR. MORAN AT BEDSIDE FOR ASSESSMENT AND TO DISCUSS PLAN OF CARE, NEW ORDERS RECIEVED.
--- NOTE | 2020-12-11 10:42 | NUR ---
CALL [facility] FOR BED, SPOKE WITH CHRISTINE VIGIL. BED #[id number] GIVEN. NURSE TO CALL BACK FOR REPORT WHEN AVAILABLE.
--- NOTE | 2020-12-11 10:51 | NUR ---
REPORT RECEIVED FROM CHRISTINE ARGUETA.
--- NOTE | 2020-12-11 11:24 | NUR ---
PATIENT CAME FROM ICU VIA WHEELCHAIR. LAYDOWN MACHINE OPERATOR IN ROOM TO OBTAIN VS. PATIENT HAS O2 AT 2L VIA NC READING 89%. TURN UP O2 TO 3L VIA NC. PATIENT O2 NOW IS 91%. LUNGS SOUND COARSE/WHEEZES. PATIENT DENIES PAIN AT THIS TIME. AU IS PATIENT WITH YELLOW URINE. CALL LIGHT IN REACH.
--- NOTE | 2020-12-11 11:31 | NUR ---
REPORT CALLED TO CHRISTINE PEREZ. PT TRANSFERRED TO RM #[id number] WITH BELONGINGS.
--- NOTE | 2020-12-11 11:33 | NUR ---
PT note Patient is screened for rehab intervention and it is felt she may benefit from PT and ST intervention if medical agrees
--- NOTE | 2020-12-11 16:06 | NUR ---
PATIENT IS SITTING IN THE SIDE OF THE BED. DRINKING PO FLUIDS. O2 AT 3L VIA NC. TELE IN PLACE. PATIENT DENIES NEEDS AT THIS TIME. CALL LIGHT IN REACH.
--- NOTE | 2020-12-11 19:14 | NUR ---
RECEIVED REPORT FROM PRESLEY FOR THIS PT AND IN BED WITH EYES OPEN AND ABLE TO MAKE NEEDS KNOWN. GIDEON LABORED BREATHING NOTED ON EXERTION. OXYGEN THERAPY IIN PLACE. WILL CONTINUE TO OBSERVE
[2020-12-12 00:27] VITALS: BP 137/84
--- NOTE | 2020-12-12 02:56 | NUR ---
pt in bed with eyes closed with no s/s of distress noted. medications given and tolerated well.skin warm to touch. respirations even and nonlabored.tolerated neb treatment well. wheezing noted in lung palmer. Sonata given for insomnia and effective. Alves catheter draining rafal colored urine. denies urinary discomfort. tolerating food and fluids well. call light is within reach. will continue to observe.
[2020-12-12 04:00] VITALS: BP 143/79
[2020-12-12 05:18] LABS: HEMATOCRIT 44.2 % (37.0-47.0); MEAN CELL VOLUME 81.1 fL CALC (80.0-100.0); MEAN CORPUSCULAR HGB 23.9 pG CALC (26.0-32.0); MEAN CORPUSCULAR HGB CONC 29.4 g/dL CAL (32.0-36.0); RED BLOOD COUNT 5.45 mill/uL (4.20-5.60); RED CELL DISTRI WIDTH 20.8 % (11.5-15.5)
[2020-12-12 05:42] LABS: ANION GAP 11 (6-22 (CALC)); BUN 17 mg/dL (7-17); BUN/CREATININE RATIO 31 (12-20 (CALC)); CARBON DIOXIDE 31 mmol/l (22-30); CHLORIDE 98 mmol/l (95-108); CREATININE 0.5 mg/dL (0.5-1.0); GFR > 60 ML/MIN (>=60 (CALC)); GFR FOR AFR.AMER. > 60 ML/MIN (>=60 (CALC)); MAGNESIUM 2.4 mg/dL (1.6-2.3); POTASSIUM 4.3 mmol/l (3.5-5.1); SODIUM 136 mmol/l (137-146)
--- NOTE | 2020-12-12 06:18 | NUR ---
PT IN BED WITH EYES CLOSED.NO S/SOF DISTRESS NOTED. RESPIRATION ARE EVEN AND NON LABORED.CALL LIGHT IS WITHIN REACH. WILL CONTINUE TO OBSERVE
--- NOTE | 2020-12-12 07:30 | NUR ---
PATIENT RESTING IN BED AT THIS TIME. PATIENT ALERT AND ORIENTED X 3 AU PATIENT AND DRAINING YELLOW URINE AT THIS TIME. PATIENT DENIES ANY NEEDS AT THIS TIME AND OR PAIN. PATIENT EXHIBITS EXPIRATORY WHEEZING AT THIS TIME. OPHTHALMIC MEDICAL TECHNOLOGIST DONE SEE INTERVENTIONS. SIDERAILS ARE UP X 2 PADDED CALL LIGHT WITHIN REACH AND PERSONAL ITEMS.
[2020-12-12 07:40] VITALS: BP 149/85
--- NOTE | 2020-12-12 09:20 | NUR ---
AU D/C AT THIS TIME 200 MLS DRAINED FROM AU BAG. PATIENT INSTRUCTED TO CALL NURSE WHEN SHE HAS TO URINATE FOR ASSISTANCE TO BEDSIDE COMMODE. PATIENT VERBALIZES UNDERSTANDING OF INSTRUCTIONS.
--- NOTE | 2020-12-12 10:30 | NUR ---
PATIENT UP TO BEDSIDE COMMODE AND URINATED 400ML AT THIS TIME THIS WAS THE FIRST VOID AFTER AU REMOVAL.
[2020-12-12 10:37] VITALS: BP 137/92
--- NOTE | 2020-12-12 11:54 | NUR ---
PATIENT RESTING IN BED AT THIS TIME EATING LUNCH. CALL LIGHT WITHIN REACH DENIES ANY NEEDS OR PAIN.
[2020-12-12] MEDS ORDERED: ZITHROMAX250 MG PO (12:10)
[2020-12-12] MEDS ORDERED: PREDNISONE10 MG PO (12:12)
[2020-12-12] MEDS ORDERED: LASIX 40 MG TAB40 MG PO (12:35)
[2020-12-12] MEDS ORDERED: PROAIR HFA108 MCG/AC IN (12:54)
[2020-12-12] MEDS ORDERED: SPIRIVA RE2.5 MCG/AC IN (14:38)
--- NOTE | 2020-12-12 14:48 | NUR ---
PATIENT D/C AT THIS TIME. JUSTICE VERBALIZES UNDERSTANING OF D/C INSTRUCTIONS AT THIS TIME.
--- NOTE | 2020-12-12 14:49 | NUR ---
Discharge instructions given. Patient verbalizes understanding of same. Discharged in stable condition via Wheelchair to Home with family. All belongings sent with pt.
== END 2020-12-12 14:52 | disposition home health service (06) | DRG 189 ==
LOC: ED 09:29 → ED-I 11:27 → ED 11:39 → MS2 11:40 → ICU 11:40 → MS2 12-11 11:27
PROVIDERS: Nurse Practitioner; ADMIT Internal Medicine; ATTEND Internal Medicine
PROC: 5A09457 Assistance with Respiratory Ventilation, 24-96 Consecutive Hours, Continuous Positive Airway Pressure (ICD-10-PCS; principal; 2020-12-08)
PROC: 0T9B70Z Drainage of Bladder with Drainage Device, Via Natural or Artificial Opening (ICD-10-PCS; 2020-12-08)
DX: J96.21 Acute and chronic respiratory failure with hypoxia (principal); Z68.42 Body mass index [BMI] 45.0-49.9, adult; E87.1 Hypo-osmolality and hyponatremia; J43.9 Emphysema, unspecified; J96.22 Acute and chronic respiratory failure with hypercapnia; N28.9 Disorder of kidney and ureter, unspecified; I50.9 Heart failure, unspecified; F41.9 Anxiety disorder, unspecified; E78.5 Hyperlipidemia, unspecified; F17.200 Nicotine dependence, unspecified, uncomplicated; E66.9 Obesity, unspecified; F31.9 Bipolar disorder, unspecified; Z99.81 Dependence on supplemental oxygen; Z20.822 Contact with and (suspected) exposure to COVID-19
CPT/HCPCS: J1650